=== PATIENT | female | born 1985 | race Caucasian/White ===

== ENCOUNTER 2018-10-13 07:15 | Emergency (ER) | payer SELFPAY ==
--- NOTE | 2018-10-13 07:38 | PDOC ---
History of Present Illness - General Chief Complaint: Abscess Boil Stated Complaint: BACK PAIN Time Seen by Provider: 10/13/18 07:37 History Source: Patient Exam Limitations: No Limitations - History of Present Illness Initial Comments: 10/13/18 08:20 CHIEF COMPLAINT: Abscess HISTORY OF PRESENT ILLNESS: This is an otherwise healthy 33-year-old female with recurrent pilonidal cyst. This is her fourth recurrence. She reports that she had an in office procedure with the surgeon 3 years ago, and was told that if she had recurrence that she would need management in the OR. She has had 4 days of pain/tenderness at the coccyx area. She reports normal bowel movements and no sensation of rectal pressure. She has not had fevers/chills. Vital signs on arrival are all within normal limits. REVIEW OF SYSTEMS: GENERAL/CONSTITUTIONAL: No fever or chills. No weakness. No weight change. GASTROINTESTINAL: No nausea, vomiting, diarrhea or constipation. GENITOURINARY: No dysuria, frequency, or change in urination. MUSCULOSKELETAL: No joint or muscle swelling or pain. No neck or back pain. SKIN: See HPI. NEUROLOGIC: No headache, vertigo, loss of consciousness, or loss of sensation. HEMATOLOGIC/LYMPHATIC: No anemia, easy bleeding, or history of blood clots. ALLERGIC/IMMUNOLOGIC: No hives or skin allergy. No latex allergy. PHYSICAL EXAM: GENERAL: The patient is awake, alert, and fully oriented, in no acute distress. HEAD: Normal with no signs of trauma. ENT: Pupils equal, round and reactive to light, extraocular movements intact, sclera anicteric, conjunctiva clear. Neck supple. LUNGS: Clear to auscultation bilaterally. Normal excursion. No respiratory distress or use of accessory muscles. CV: RRR, S1/S2, no MRG. Cap refill < 2 sec. ABDOMEN: Soft, non-distended, non-tender. EXTREMITIES: Normal range of motion, no edema. NEUROLOGICAL: Normal speech, normal gait. CN II-XII grossly intact. PSYCH: Normal mood, normal affect. SKIN: Area of tenderness and induration over coccyx, more pronounced on left side. No erythema or fluctuance at skin surface. RECTAL: Normal rectal exam with no masses or tenderness. Past History - Past Medical History Allergies/Adverse Reactions: Allergies Allergy/AdvReac Type Severity Reaction Status Date / Time No Known Allergies Allergy Verified 10/13/18 07:31 Home Medications: Ambulatory Orders Docusate Sodium [Colace] 100 mg PO TID #30 capsule 10/13/18 Ibuprofen [Motrin -] 600 mg PO QID PRN #30 tablet 10/13/18 Oxycodone HCl/Acetaminophen [Percocet 5-325 mg Tablet] 1 tab PO Q6H #10 tablet MDD 4 tabs 10/13/18 Asthma: No Cancer: No Cardiac Disorders: No Diabetes: No HTN: No Seizures: No Thyroid Disease: No - Reproductive History (#): 5 Para: 2 Cervical CA: No Dysfunctional Uterine Bleeding: No Ectopic : No Endometrial CA: No Polycystic Ovaries: No Therapeutic (s) & number: No Tubal Ligation: No Spontaneous : 2 - Suicide/Smoking/Psychosocial Hx Smoking Status: No Smoking History: Current every day smoker Have you smoked in the past 12 months: No Number of Cigarettes Smoked Daily: 7 Information on smoking cessation initiated: Yes Hx Alcohol Use: No Drug/Substance Use Hx: No Substance Use Type: None Hx Substance Use Treatment: No *Physical Exam - Vital Signs Last Vital Signs Temp Pulse Resp BP Pulse Ox 97.7 F 82 16 110/62 97 10/13/18 07:32 10/13/18 07:32 10/13/18 07:32 10/13/18 07:32 10/13/18 07:32 Moderate Sedation - Procedure Monitoring Vital Signs: Procedure Monitoring Vital Signs Temperature 97.7 F 10/13/18 07:32 Pulse Rate 82 10/13/18 07:32 Respiratory Rate 16 10/13/18 07:32 Blood Pressure 110/62 10/13/18 07:32 O2 Sat by Pulse Oximetry (%) 97 10/13/18 07:32 Medical Decision Making - Medical Decision Making 10/13/18 08:26 A/P: 33-year-old female with recurrent pilonidal cyst without systemic symptoms or rectal involvement. -Area prepped with Betadine and explored with 18-gauge needle; unable to extract any pus -Discussed with Dr. Miller who will see the patient in the office, will likely need operative procedure *DC/Admit/Observation/Transfer Diagnosis at time of Disposition: Pilonidal cyst - Discharge Dispostion Disposition: HOME Condition at time of disposition: Stable Decision to Admit order: No - Prescriptions Prescriptions: Docusate Sodium [Colace] 100 mg PO TID #30 capsule Ibuprofen [Motrin -] 600 mg PO QID PRN #30 tablet PRN Reason: Pain Oxycodone HCl/Acetaminophen [Percocet 5-325 mg Tablet] 1 tab PO Q6H #10 tablet MDD 4 tabs - Referrals Schedule a call back: Call with appt Referrals: Kwasi Miller MD [Staff Physician] - - Patient Instructions Printed Discharge Instructions: Pilonidal Cyst Additional Instructions: -Take ibuprofen as needed for pain and Percocet as needed for severe breakthrough pain -Take warm baths -Sit on cushions to relieve pressure -Follow up with Dr. Miller (surgeon), contact information enclosed -Return for fever, pain in the rectum/difficulty with bowel movements, or any other concerning symptoms Print Language: HUNGARIAN - Post Discharge Activity
[2018-10-13 07:45] VITALS: BP 110/62; PULSE 82; TEMP 97.7; BMI 23.7
[2018-10-13] MEDS ORDERED: LIDOCAINE HCL 1%, 10 MG/ML (50 mL VIAL) SQ ONE (07:52)
[2018-10-13] MEDS ORDERED: LIDOCAINE HCL 1%, 10 MG/ML (20ML VIAL) ONE (07:56)
== END 2018-10-13 08:45 | disposition home or self-care (01) ==
LOC: JER 07:15
PROC: 0H98XZZ Drainage of Buttock Skin, External Approach (ICD-10-PCS; principal; 2018-10-13)
DX: L05.91 Pilonidal cyst without abscess (principal)
CPT/HCPCS: 99282-25

== ENCOUNTER 2018-10-19 22:36 | Day surgery (SDC) | payer SELFPAY ==
--- NOTE | 2018-10-20 02:07 | PDOC ---
History of Present Illness - General Chief Complaint: Wound Stated Complaint: PCP ADMIT/ABSCESS BOIL Time Seen by Provider: 10/20/18 02:06 History Source: Patient Exam Limitations: No Limitations - History of Present Illness Initial Comments: 10/20/18 02:30 33 year old female with PMH pilonidal cyst sent to ED by Dr. Miller for admission for pilonidal cyst surgery. Pt stated she had prior surgery for pilonidal cyst x3 years ago, and has been symptom free until x16 days ago, when she began to have swelling and pain at the site. Pt stated the wound is draining. Pt was seen by Dr. Miller 10/19/18. Pt denied fever, chills, nausea, vomiting, abdominal pain, chest pain, shortness of breath, lightheadedness or any other complaints. Allergies: NKDA Past History - Past Medical History Allergies/Adverse Reactions: Allergies Allergy/AdvReac Type Severity Reaction Status Date / Time No Known Allergies Allergy Verified 10/20/18 03:28 Home Medications: Ambulatory Orders NK [No Known Home Medication] 10/20/18 Asthma: No Cancer: No Cardiac Disorders: No COPD: No Diabetes: No HTN: No Seizures: No Thyroid Disease: No - Surgical History Abdominal Surgery: No Appendectomy: No Cardiac Surgery: No Cholecystectomy: No Gastric Stapling: No Lung Surgery: No Neurologic Surgery: No - Reproductive History (#): 5 Para: 2 Cervical CA: No Dysfunctional Uterine Bleeding: No Ectopic : No Endometrial CA: No Polycystic Ovaries: No Therapeutic (s) & number: No Tubal Ligation: No Spontaneous : 2 - Suicide/Smoking/Psychosocial Hx Smoking Status: No Smoking History: Never smoked Have you smoked in the past 12 months: No Number of Cigarettes Smoked Daily: 7 Information on smoking cessation initiated: No Hx Alcohol Use: No Drug/Substance Use Hx: No Substance Use Type: None Hx Substance Use Treatment: No Review of Systems - Review of Systems Able to Perform ROS?: Yes Comments:: 10/20/18 02:33 General: denied fever, chills, night sweats, generalized weakness. HEENT: denied sore throat, rhinorrhea, ear pain. Heart: denied chest pain, palpitations, syncope, lower extremity swelling, diaphoresis. Respiratory: denied shortness of breath, cough, sputum production, hemoptysis. Abdomen: denied abdominal pain, nausea, vomiting, diarrhea, constipation, blood in stool. : denied dysuria, increased urinary frequency, hematuria, urinary incontinence , flank pain. Back: denied back pain. Musculoskeletal: denied joint pain, muscle pain, joint swelling. Neurological: denied headache, dizziness, numbness, tingling, weakness. Skin: admitted to pilonidal cyst. denied rash, laceration, abrasion. *Physical Exam - Vital Signs Last Vital Signs Temp Pulse Resp BP Pulse Ox 97.6 F 90 20 111/49 L 99 10/19/18 22:53 10/19/18 22:53 10/19/18 22:53 10/19/18 22:53 10/19/18 22:53 - Physical Exam Comments: 10/20/18 02:33 Constitutional: Well-nourished, Well-developed, appearing stated age. HEENT: head is normocephalic, atraumatic. EOMI. PERRLA. Neck: supple. Full ROM. Heart: regular rhythm. no murmurs, rubs or gallops. Lungs: clear to auscultation bilaterally. no crackles, rhonchi or wheezing. no stridor. Abdomen: soft, nontender. normal bowel sounds. no rebound, guarding, masses. Extremities: Peripheral pulses intact. No lower extremity edema. Neurological: CN 2-12 grossly intact. Moves all four extremities. Psych: awake, alert, oriented x3. Follows commands. Answers questions appropriately. Skin: 2x2 cm pilonidal cyst noted, no surrounding erythema, no fluctuance, draining. Moderate Sedation - Procedure Monitoring Vital Signs: Procedure Monitoring Vital Signs Temperature 97.6 F 10/19/18 22:53 Pulse Rate 90 10/19/18 22:53 Respiratory Rate 20 10/19/18 22:53 Blood Pressure 111/49 L 10/19/18 22:53 O2 Sat by Pulse Oximetry (%) 99 10/19/18 22:53 ED Treatment Course - LABORATORY CBC & Chemistry Diagram: 10/20/18 02:26 10/20/18 02:26 Medical Decision Making - Medical Decision Making 10/20/18 02:34 33 year old female with above PMH sent to ED by Dr. Miller for admission for pilonidal cyst surgery. Initial Vital Signs Temp Pulse Resp BP Pulse Ox 97.6 F 90 20 111/49 L 99 10/19/18 22:53 10/19/18 22:53 10/19/18 22:53 10/19/18 22:53 10/19/18 22:53 Afebrile. No tachycardia. No tachypnea. Mild hypotension. No hypoxia on room air. Labs ordered: CBC, CMP, coags, T/S Imaging ordered: CXR Medications ordered: normal saline bolus EKG performed at 0255: rate 70, regular rhythm, normal axis, normal intervals, no acute ST changes. CXR my read: sharp costophrenic angles. no cardiomegaly. no infiltrate. no pneumothorax. - Pending official read 10/20/18 03:02 CBC WBC 12.0 K/mm3 (4.0-10.0) H 10/20/18 02:26 RBC 4.09 M/mm3 (3.60-5.2) 10/20/18 02:26 Hgb 12.9 GM/dL (10.7-15.3) 10/20/18 02:26 Hct 36.9 % (32.4-45.2) 10/20/18 02:26 MCV 90.2 fl (80-96) 10/20/18 02:26 MCH 31.5 pg (25.7-33.7) 10/20/18 02:26 MCHC 34.9 g/dl (32.0-36.0) 10/20/18 02:26 RDW 13.9 % (11.6-15.6) D 10/20/18 02:26 Plt Count 328 K/MM3 (134-434) D 10/20/18 02:26 MPV 7.9 fl (7.5-11.1) D 10/20/18 02:26 Absolute Neuts (auto) 7.3 K/mm3 (1.5-8.0) 10/20/18 02:26 Neutrophils % 60.8 % (42.8-82.8) 10/20/18 02:26 Lymphocytes % 29.1 % (8-40) 10/20/18 02:26 Monocytes % 7.1 % (3.8-10.2) 10/20/18 02:26 Eosinophils % 2.4 % (0-4.5) D 10/20/18 02:26 Basophils % 0.6 % (0-2.0) 10/20/18 02:26 Nucleated RBC % 0 % (0-0) 10/20/18 02:26 Leukocytosis without left shift. 10/20/18 03:25 CMP Sodium 138 mmol/L (136-145) 10/20/18 02:26 Potassium 4.4 mmol/L (3.5-5.1) 10/20/18 02:26 Chloride 109 mmol/L (98-107) H 10/20/18 02:26 Carbon Dioxide 22 mmol/L (21-32) 10/20/18 02:26 Anion Gap 7 MMOL/L (8-16) L 10/20/18 02:26 BUN 11 mg/dL (7-18) 10/20/18 02:26 Creatinine 0.8 mg/dL (0.55-1.3) 10/20/18 02:26 Creat Clearance w eGFR > 60 (>60) 10/20/18 02:26 Random Glucose 89 mg/dL (74-106) 10/20/18 02:26 Calcium 8.7 mg/dL (8.5-10.1) 10/20/18 02:26 Total Bilirubin 0.4 mg/dL (0.2-1) 10/20/18 02:26 AST 12 U/L (15-37) L 10/20/18 02:26 ALT 20 U/L (13-61) 10/20/18 02:26 Alkaline Phosphatase 84 U/L (45-117) 10/20/18 02:26 Total Protein 6.9 g/dl (6.4-8.2) 10/20/18 02:26 Albumin 3.4 g/dl (3.4-5.0) 10/20/18 02:26 Beta HCG, Quant < 1.0 mIU/ml 10/20/18 02:26 INR, PTT INR 1.08 (0.83-1.09) 10/20/18 02:26 Normal CMP. Normal coags. Pt to be admitted to Dr. Miller's service. 10/20/18 20:35 CXR report: negative for acute pathology *DC/Admit/Observation/Transfer Diagnosis at time of Disposition: Pilonidal cyst - Discharge Dispostion Condition at time of disposition: Stable Decision to Admit order: Yes - Referrals - Patient Instructions - Post Discharge Activity
[2018-10-20] MEDS ORDERED: SODIUM CHLORIDE 1,000 ML IV STA (02:35)
[2018-10-20 02:39] LABS: BASO % 0.6 % (0-2.0); EOS % 2.4 % (0-4.5); HEMATOCRIT 36.9 % (32.4-45.2); HEMOGLOBIN 12.9 GM/dL (10.7-15.3); LYMPH % 29.1 % (8-40); MCH 31.5 pg (25.7-33.7); MCHC 34.9 g/dl (32.0-36.0); MEAN CELL VOLUME 90.2 fl (80-96); MEAN PLT VOLUME 7.9 fl (7.5-11.1); MONO % 7.1 % (3.8-10.2); NEUT % 60.8 % (42.8-82.8); PLATELET COUNT 328 K/MM3 (134-434); RBC 4.09 M/mm3 (3.60-5.2); RDW 13.9 % (11.6-15.6)
[2018-10-20 03:08] LABS: ALBUMIN 3.4 g/dl (3.4-5.0); ALK PHOS 84 U/L (45-117); ANION GAP 7 MMOL/L (8-16); BILIRUBIN,TOTAL 0.4 mg/dL (0.2-1); BLOOD UREA NITROGEN 11 mg/dL (7-18); CALCIUM 8.7 mg/dL (8.5-10.1); CHLORIDE 109 mmol/L (98-107); CO2 22 mmol/L (21-32); CREATININE 0.8 mg/dL (0.55-1.3); GLUCOSE,RANDOM 89 mg/dL (74-106); POTASSIUM 4.4 mmol/L (3.5-5.1); SGOT/AST 12 U/L (15-37); SGPT/ALT 20 U/L (13-61); SODIUM 138 mmol/L (136-145); TOT PROT 6.9 g/dl (6.4-8.2)
[2018-10-20 03:15] LABS: INR 1.08 (0.83-1.09); PROTHROMBIN TIME (PATIENT) 12.7 SEC (9.7-13.0)
[2018-10-20 03:18] LABS: ACTIVATED PTT 29.7 SECONDS (25.2-36.5)
--- NOTE | 2018-10-20 05:19 | PDOC ---
Attending Attestation - Resident Resident Name: Sommer Charles - ED Attending Attestation I have performed the following: I have examined & evaluated the patient, The case was reviewed & discussed with the resident, I agree w/resident's findings & plan, Exceptions are as noted - HPI HPI: 10/20/18 05:16 33yoF w/ chronic pilonidal abscess/cysts sent by surgery for direct admission for intervention on infected cyst. - Physicial Exam PE: 10/20/18 05:17 NAD, well appearing pilonidal cyst exam as per resident note. - Medical Decision Making 10/20/18 05:17 33yoF for OR. - preop - CXR - EKG - admit
--- NOTE | 2018-10-20 08:12 | HP ---
Admitting History and Physical - Admission Chief Complaint: Infected pilonidal cyst History of Present Illness: 33yo F presented to the ED with complaint of pain and swelling around gluteal cleft for the past 7-10 days. Pt states that yesterday the pain became worse and started draining so she presented to the ED. Pt states that she previously had area I&D about 3 years ago, but never followed up with a surgeon to have cyst removed. Pt denies fever, chills, n/v. History Source: Patient Limitations to Obtaining History: No Limitations - Past Medical History Pulmonary: Yes: Asthma (rx albutrol inhaler prn, does not recall when was last episode) ...LMP: 06/29/12 Additional Past Medical History: denies - Past Surgical History Past Surgical History: Yes: - Smoking History Smoking history: Current every day smoker (smokes 1/4ppd x 3years) Have you smoked in the past 12 months: Yes Aproximately how many cigarettes per day: 7 - Alcohol/Substance Use Hx Alcohol Use: No History of Substance Use: reports: None - Social History Usual Living Arrangement: Yes: With Spouse Home Medications - Allergies Allergies/Adverse Reactions: Allergies Allergy/AdvReac Type Severity Reaction Status Date / Time No Known Allergies Allergy Verified 10/20/18 03:28 - Home Medications Home Medications: Ambulatory Orders Docusate Sodium [Colace] 100 mg PO TID #30 capsule 10/13/18 Ibuprofen [Motrin -] 600 mg PO QID PRN #30 tablet 10/13/18 Oxycodone HCl/Acetaminophen [Percocet 5-325 mg Tablet] 1 tab PO Q6H #10 tablet MDD 4 tabs 10/13/18 Review of Systems Findings/Remarks: see HPI - Review of Systems Constitutional: reports: No Symptoms Eyes: reports: No Symptoms HENT: reports: No Symptoms Neck: reports: No Symptoms Cardiovascular: reports: No Symptoms Respiratory: reports: No Symptoms Gastrointestinal: reports: No Symptoms Genitourinary: reports: No Symptoms Physical Examination Vital Signs: Vital Signs Temperature 97.6 F 10/19/18 22:53 Pulse Rate 90 10/19/18 22:53 Respiratory Rate 20 10/19/18 22:53 Blood Pressure 111/49 L 10/19/18 22:53 O2 Sat by Pulse Oximetry (%) 99 10/19/18 22:53 Constitutional: Yes: Well Nourished, No Distress, Calm Eyes: Yes: WNL, Conjunctiva Clear, EOM Intact HENT: Yes: WNL, Atraumatic, Normocephalic Neck: Yes: WNL, Supple, Trachea Midline Cardiovascular: Yes: WNL, Regular Rate and Rhythm Respiratory: Yes: WNL, Regular, CTA Bilaterally Gastrointestinal: Yes: WNL, Soft Musculoskeletal: Yes: WNL Extremities: Yes: WNL Edema: No Integumentary: Yes: Other (Superior aspect of gluteal cleft shows mild erythema and swelling, with tenderness to palpation, pinhole openning with serous drainage.) Neurological: Yes: WNL ...Motor Strength: WNL Psychiatric: Yes: WNL, Alert, Oriented Labs: CBC, BMP 10/20/18 02:26 10/20/18 02:26 Imaging - Results Chest X-ray: Pending Problem List - Problems (1) Infected pilonidal cyst Assessment/Plan: Plan -pt will be taken to the OR for drainage and possible excision of pilonidal cyst this afternoon -keep NPO -IV fluids Code(s): L05.91 - PILONIDAL CYST WITHOUT ABSCESS
[2018-10-20] MEDS ORDERED: ROCURONIUM BROMIDE 50 MG/5 ML VIAL ONE (11:27)
[2018-10-20] MEDS ORDERED: MIDAZOLAM HCL 2 MG/2 ML SINGLE DOSE VIAL ONE (11:27)
[2018-10-20] MEDS ORDERED: ONDANSETRON 4 MG/2 ML VIAL IVPUSH PRN ×2 (12:08→13:35)
[2018-10-20] MEDS ORDERED: ceFAZolin SODIUM 1 GM VIAL ONE (12:10)
[2018-10-20] MEDS ORDERED: ceFAZolin SODIUM 1 GM VIAL IVPB ONE (12:12)
[2018-10-20] MEDS ORDERED: LACTATED RINGERS SOLUTION 1,000 ML IV SCH ×2 (12:15→13:35)
[2018-10-20] MEDS ORDERED: PROPOFOL 20 ML ONE (12:16)
[2018-10-20] MEDS ORDERED: KETOROLAC TROMETHAMINE 30 MG/1 ML VIAL ONE (12:18)
--- NOTE | 2018-10-20 13:27 | SURG ---
Surgery Lead Neurodiagnostic Technologist Note Lead Neurodiagnostic Technologist: Jose Luis Craig PA-C Date of Service: 10/20/18 Diagnosis: infected pilonidal cyst Procedure: Excision and drainage of pilonidal cyst I was present for the entirety of the operative procedure. For further detail, please refer to operative report. Visit type - Case Type Case Type: ED Admission - Emergency Emergency Visit: Yes Care time: The patient presented to the Emergency Department on the above date and was hospitalized for further evaluation of their emergent condition. - New patient This patient is new to me today: Yes Date on this admission: 10/20/18
--- NOTE | 2018-10-20 13:27 | OP ---
Operative Note - Note: Operative Date: 10/20/18 Pre-Operative Diagnosis: infected pilonidal cyst Operation: Excision and drainage of pilonidal cyst Post-Operative Diagnosis: Same as Pre-op Surgeon: Kwasi Miller Security Patrol Driver: Jose Luis Craig Anesthesiologist/OVERLAY PLASTICIAN: Ulises Nevarez Anesthesia: General Estimated Blood Loss (mls): 5 Operative Report Dictated: Yes
--- NOTE | 2018-10-20 13:35 | PN ---
Progress Note (short form) - Note Progress Note: Attending Surgeon Patient was seen in the office yesterday w/pain and swelling at the site of a recurrent/persistant pilonidal cyst and sinus tract; she was instructed to go the ER for admission for I and D and possible excision of the pilonidal cyst tract and abscess; r/b/t/a's d/w the patient pre-op and informed consent obtained; possible further surgery in the future may be indicated; she understands. Kwasi Miller MD FACS
--- NOTE | 2018-10-20 16:16 | EKG ---
Test Reason : Blood Pressure : / mmHG Vent. Rate : 070 BPM Atrial Rate : 070 BPM P-R Int : 124 ms QRS Dur : 076 ms QT Int : 378 ms P-R-T Axes : 052 054 032 degrees QTc Int : 408 ms NORMAL SINUS RHYTHM WITH SINUS ARRHYTHMIA NORMAL ECG WHEN COMPARED WITH ECG OF 08-MAY-2010 14:24, NO SIGNIFICANT CHANGE WAS FOUND Confirmed by NIKOLAY BETTS MD ([id number]) on 10/20/2018 4:16:31 PM Referred By: Confirmed By:NIKOLAY BETTS MD
[2018-10-20 16:17] VITALS: BMI 27.9
[2018-10-20] MEDS: oxyCODONE HCL 5 MG TABLET PO PRN (21:26)
[2018-10-21] MEDS: oxyCODONE HCL 5 MG TABLET PO PRN ×2 (06:37→10:10)
[2018-10-21 11:55] VITALS: BP 100/60; PULSE 72; TEMP 98.4
--- NOTE | 2018-10-21 16:10 | PATH ---
Surgical Pathology Report Patient Name: GURINDER MACHUCA [facility]. Rec. #: [id number] /Age/Gender: 1985 (Age: 33) / F Account: [id number] Location: AMBULATORY SURG Taken: 10/20/2018 Received: 10/20/2018 Reported: 10/21/2018 Physicians: Kwasi Miller MD PHYSICIAN EMERGENCY DEPT Specimen(s) Received PILONIDAL CYST AND SINUS TRACT Clinical History Pilonidal cyst Final Diagnosis PILONIDAL CYST AND SINUS TRACT, EXCISION: SKIN WITH SINUS TRACT SHOWING SEVERE ACUTE AND CHRONIC INFLAMMATION AND ABSCESS FORMATION. Electronically Signed Anibal Castro M.D. Gross Description Received in formalin labeled "pilonidal cyst and sinus tract," is a 2.8 x 0.7 cm wolff, unoriented portion of skin excised to a depth of 0.8 cm. The epidermal surface displays a central, linear invagination. Separately received within the same container is a 2.3 x 1.8 x 0.5 cm aggregate of wolff-brown soft tissue fragments, possibly consistent with a disrupted cyst. Marine Engine Machinist Apprentice sections are submitted in one cassette. DL/10/20/2018 saudi10/20/2018
--- NOTE | 2018-10-31 22:47 | OP ---
DATE OF OPERATION: 10/20/2018 PREOPERATIVE DIAGNOSIS: Infected pilonidal cyst and sinus tract. POSTOPERATIVE DIAGNOSIS: Infected pilonidal cyst and sinus tract. PROCEDURE: Incision and drainage of pilonidal cyst and sinus tract and excision of pilonidal cyst and sinus tract. SURGEON: Kwasi Miller MD SENIOR ACTUARIAL ANALYST: Jose Luis Craig PA-C ANESTHESIA: General. OPERATIVE FINDINGS: There was an infected pilonidal cyst and sinus tract with surrounding induration and cellulitis. The rest of the findings were unremarkable. DESCRIPTION OF PROCEDURE: The patient was placed on the operating room table in the prone jackknife position. After the induction of general anesthesia, fluctuant area in the midline was incised, and purulent drainage was sent for culture and sensitivity. An elliptical incision was then mapped out around the sinus tract pit in the midline, and using a scalpel, excision was carried out from skin down through subcutaneous tissue and fat to the sacral fascia. This specimen was passed off the operative field and sent for pathological examination. Additional curetting was carried out until brisk bleeding was observed and all nonviable infected tissue was removed. The wound was then copiously irrigated with sterile saline and hemostasis secured with electrocautery. Hemostasis was again verified, and then, the wound was packed with 1/2-inch Iodoform gauze, followed by dry sterile dressings and the patient extubated in the operating room and transferred to the postanesthesia care unit in stable condition, awake and alert. ESTIMATED BLOOD LOSS: Minimal. DRAINS: None. SPECIMENS: Pilonidal cyst and sinus tract portions to Pathology. I, Kwasi Miller, was physically present in the operating room from the time the patient was placed on the operating table until she was transferred to the postanesthesia care unit in my accompaniment. MD ITALIA French/[id number]
== END 2018-10-21 12:10 | disposition home or self-care (01) ==
LOC: JER 22:36 → JERBED 10-20 03:11 → JASUSAT 10-20 03:11 → UNDOADMIN 10-20 03:11 → J8W 10-20 15:48 → JASUSAT 10-21 12:10
PROVIDERS: ATTEND Surgery
CPT/HCPCS: 36415; 71046-TC-FY; 80053; 84702; 85025; 85610; 85730; 86850; 86900; 86901; 87040; 87070; 87075; 87076; 87205; 88304-TC; 93005; 93010; 94760; 99283-25; J7030

== ENCOUNTER 2018-11-03 19:49 | Emergency (ER) | payer OTHER ==
--- NOTE | 2018-11-03 19:51 | PDOC ---
Rapid Medical Evaluation Time Seen by Provider: 11/03/18 19:50 Medical Evaluation: Allergies Allergy/AdvReac Type Severity Reaction Status Date / Time No Known Allergies Allergy Verified 10/20/18 03:28 11/03/18 19:50 I have performed a brief in-person evaluation of this patient. The patient presents with a chief complaint of: subjective fever, bodyaches, headaches, sore throat x 1 day. s/p surgery for pilonidal cyst x 2 wks ago. Pertinent physical exam findings: Lungs CTAB. Mild tachycardia. Mild pharyngeal erythema. Surgical site clean and dry, no erythema. I have ordered the following: Influenza, rapid strep. The patient will proceed to the ED for further evaluation. 11/03/18 19:53 Discharge Disposition - Diagnosis Fever Qualifiers: Encounter type: initial encounter - Referrals - Patient Instructions - Post Discharge Activity
[2018-11-03 19:55] VITALS: BP 111/75; PULSE 101; TEMP 98.9; BMI 23.3
--- NOTE | 2018-11-03 20:10 | PDOC ---
History of Present Illness - General Chief Complaint: Cold Symptoms Stated Complaint: COLD SYMPTOMS Time Seen by Provider: 11/03/18 19:50 History Source: Patient Exam Limitations: No Limitations - History of Present Illness Initial Comments: 11/03/18 20:12 Patient is a 33-year-old female who presents to the ER for one day of subjective fevers, sore throat, body aches, R ear pain and headache. Pt states she's taken Tylenol with little relief of her symptoms. Denies cough, shortness of breath, chest pain, vomiting and diarrhea Past History - Travel Traveled outside of the country in the last 30 days: No Close contact w/someone who was outside of country & ill: No - Past Medical History Allergies/Adverse Reactions: Allergies Allergy/AdvReac Type Severity Reaction Status Date / Time No Known Allergies Allergy Verified 11/03/18 19:55 Home Medications: Ambulatory Orders Acetaminophen [Tylenol -] 1,000 mg PO Q6H 11/03/18 Asthma: No Cancer: No Cardiac Disorders: No COPD: No Diabetes: No HTN: No Seizures: No Thyroid Disease: No - Surgical History Abdominal Surgery: No Appendectomy: No Cardiac Surgery: No Cholecystectomy: No Gastric Stapling: No Lung Surgery: No Neurologic Surgery: No - Reproductive History (#): 5 Para: 2 Cervical CA: No Dysfunctional Uterine Bleeding: No Ectopic : No Endometrial CA: No Polycystic Ovaries: No Therapeutic (s) & number: No Tubal Ligation: No Spontaneous : 2 - Suicide/Smoking/Psychosocial Hx Smoking Status: No Smoking History: Never smoked Have you smoked in the past 12 months: No Number of Cigarettes Smoked Daily: 7 Information on smoking cessation initiated: No 'Breaking Loose' booklet given: 10/20/18 Hx Alcohol Use: No Drug/Substance Use Hx: No Substance Use Type: None Hx Substance Use Treatment: No Review of Systems - Review of Systems Able to Perform ROS?: Yes Comments:: 11/03/18 20:10 CONSTITUTIONAL: Present: Fever, chills, body aches Absent: diaphoresis, generalized weakness, malaise, loss of appetite HEENT: Present: rhinorrhea, nasal congestion, throat pain, R ear pain. Absent: difficulty swallowing, mouth swelling, eye pain, visual Changes CARDIOVASCULAR: Absent: chest pain, loss of consciousness, palpitations, irregular heart rate, peripheral edema RESPIRATORY: Present: Cough Absent: shortness of breath, dyspnea with exertion, orthopnea, wheezing, stridor, hemoptysis GASTROINTESTINAL: Absent: abdominal pain, abdominal distension, nausea, vomiting, diarrhea, constipation, melena, hematochezia SKIN: Absent: rash, itching, pallor NEUROLOGIC: Present: headache Absent: focal weakness or paresthesias, dizziness, unsteady gait, seizure, mental status changes, bladder or bowel incontinence Is the patient limited Maltese proficient: No *Physical Exam - Vital Signs Last Vital Signs Temp Pulse Resp BP Pulse Ox 98.9 F 101 H 19 111/75 98 11/03/18 19:52 11/03/18 19:52 11/03/18 19:52 11/03/18 19:52 11/03/18 19:52 - Physical Exam Comments: 11/03/18 20:12 GENERAL: Well developed, well nourished. Awake and alert. No acute distress. HEENT: Normocephalic, atraumatic. PERRLA, EOMI. No conjunctival pallor. Sclera are non- icteric. Moist mucous membranes. Oropharynx is clear. NECK: Supple. Full ROM. No JVD. Carotid pulses 2+ and symmetric, without bruits. No thyromegaly. No lymphadenopathy. CARDIOVASCULAR: Regular rate and rhythm. No murmurs, rubs, or gallops. Distal pulses are 2+ and symmetric. PULMONARY: No evidence of respiratory distress. Lungs clear to auscultation bilaterally. No wheezing, rales or rhonchi. ABDOMINAL: Soft. Non-tender. Non-distended. No rebound or guarding. No organomegaly. Normoactive bowel sounds. MUSCULOSKELETAL Normal range of motion at all joints. No bony deformities or tenderness. No CVA tenderness. EXTREMITIES: No cyanosis. No clubbing. No edema. No calf tenderness. SKIN: Warm and dry. Normal capillary refill. No rashes. No jaundice. NEUROLOGICAL: Alert, awake, appropriate. Cranial nerves 2-12 intact. No deficits to light touch and temperature in face, upper extremities and lower extremities. No motor deficits in the in face, upper extremities and lower extremities. Normoreflexic in the upper and lower extremities. Normal speech. Toes are down- going bilaterally. Gait is normal without ataxia. PSYCHIATRIC: Cooperative. Good eye contact. Appropriate mood and affect. Moderate Sedation - Procedure Monitoring Vital Signs: Procedure Monitoring Vital Signs Temperature 98.9 F 11/03/18 19:52 Pulse Rate 101 H 11/03/18 19:52 Respiratory Rate 19 11/03/18 19:52 Blood Pressure 111/75 11/03/18 19:52 O2 Sat by Pulse Oximetry (%) 98 11/03/18 19:52 Medical Decision Making - Medical Decision Making 11/03/18 21:42 Patient is a 33-year-old female no medical history presents to ER with 1 day of cold/flulike symptoms. Exam is benign at this time with no focal findings. Rapid strep and rapid flu are negative. Will treat symptomatically with Motrin and Zofran. Most likely a viral URI Discharge home with PCP follow-up. I discussed the physical exam findings, ancillary test results and final diagnoses with the patient. I answered all of the patient's questions. The patient was satisfied with the care received and felt comfortable with the discharge plan and treatment plan. The Patient agrees to follow up with the primary care physician/specialist within 24-72 hours. Return precautions were given. *DC/Admit/Observation/Transfer Diagnosis at time of Disposition: Upper respiratory infection Qualifiers: URI type: unspecified URI Qualified Code(s): J06.9 - Acute upper respiratory infection, unspecified - Discharge Dispostion Disposition: HOME Condition at time of disposition: Stable Decision to Admit order: No - Referrals Referrals: Lauri Price MD [Staff Physician] - - Patient Instructions Printed Discharge Instructions: DI for Viral Upper Respiratory Infection -- Adult Additional Instructions: You have an upper respiratory infection, or the common cold. Your strep and flu testing was negative today. Please take Motrin 600 mg every 6 hours as needed for pain not to exceed 3000 mg a day. You may take Zofran 4mg every 8 hours as needed for nausea. Drink plenty of fluids. Cough drops and warm tea may help your symptoms as well. Please follow up with her primary care doctor this week. Return to the emergency department if you have difficulty breathing, shortness of breath, worsening pain, nausea, vomiting or if you have any changes in your symptoms. Usted tiene philippe infeccin respiratoria superior, o el resfriado comn. Hernandez prueba de estreptococo y gripe fue negativa hoy [place] Motrin 600 mg cada 6 horas segn sea necesario para que el dolor no exceda los 3000 mg al da. Puede stephania Zofran 4 mg cada 8 horas segn sea necesario para las nuseas. Beber mucho lquido. Las gotas para la tos y el t caliente tambin pueden ayudar con lalit sntomas. Por favor rena un seguimiento con hernandez mdico de atencin primaria esta semana. Regrese al departamento de emergencias si tiene dificultad para respirar, dificultad para respirar, empeoramiento del dolor, nuseas, vmitos o si tiene algn cambio en lalit sntomas. - Post Discharge Activity Forms/Work/School Notes: Back to Work
[2018-11-03] MEDS ORDERED: IBUPROFEN 600 MG TABLET (FP) PO ONE ×2 (21:26→21:29)
[2018-11-03] MEDS ORDERED: ONDANSETRON *ODT* 4 MG TABLET SL ONE (21:26)
[2018-11-03] MEDS ORDERED: ONDANSETRON *ODT* 4 MG TABLET ONE (21:29)
== END 2018-11-03 21:32 | disposition home or self-care (01) ==
LOC: JERFT 19:49 → JER 19:49 → JERFT 21:32
DX: J06.9 Acute upper respiratory infection, unspecified (principal)
CPT/HCPCS: 87070; 87804; 87880; 99281-25; Q0162

== ENCOUNTER 2018-12-18 20:01 | Emergency (ER) | payer OTHER ==
[2018-12-18 20:16] VITALS: BP 115/60; PULSE 83; TEMP 97.9; BMI 24.1
--- NOTE | 2018-12-18 20:50 | PDOC ---
History of Present Illness - General Chief Complaint: Pain, Acute Stated Complaint: RIFGT SIDE PAIN Time Seen by Provider: 12/18/18 20:44 History Source: Patient, Spouse (Pt's present at bedside), Old Records Exam Limitations: No Limitations - History of Present Illness Initial Comments: HPI: 33 y/o female presenting to [facility] ER complaining of right lower back pain x2 days. Pt starts the pain started Wednesday morning after waking from sleep. Reports sleeping in a different position because her son slept in the bed with her. Pain is non-radiating and non-migratory. Made worse by lateral twisting of torso and deep inspiration. Denies fevers, chills, increased urinary frequency, dysuria, hematuria, or vaginal discharge. Has tried Tylenol for pain yesterday with minimal relief. States she, doesnt like taking medication. LMP: Does not have periods. New Depo shot placed in Oct 2018. No history of STDs. PCP: None Social Hx: - Tobacco: Smokes 6-7 cigarettes per day EtOH: Denies Street Drugs: Denies Past History - Past Medical History Allergies/Adverse Reactions: Allergies Allergy/AdvReac Type Severity Reaction Status Date / Time No Known Allergies Allergy Verified 12/18/18 20:11 Home Medications: Ambulatory Orders Acetaminophen [Tylenol -] 1,000 mg PO Q6H 11/03/18 Ibuprofen [Motrin -] 400 mg PO QID PRN #28 tablet 11/04/18 Ondansetron [Zofran *Odt*] 4 mg SL PRN PRN #14 od.tablet 11/04/18 Asthma: No Cancer: No Cardiac Disorders: No COPD: No Diabetes: No HTN: No Seizures: No Thyroid Disease: No - Surgical History Abdominal Surgery: No Appendectomy: No Cardiac Surgery: No Cholecystectomy: No Gastric Stapling: No Lung Surgery: No Neurologic Surgery: No - Reproductive History (#): 5 Para: 2 Cervical CA: No Dysfunctional Uterine Bleeding: No Ectopic : No Endometrial CA: No Polycystic Ovaries: No Therapeutic (s) & number: No Tubal Ligation: No Spontaneous : 2 - Suicide/Smoking/Psychosocial Hx Smoking Status: No Smoking History: Never smoked Have you smoked in the past 12 months: No Number of Cigarettes Smoked Daily: 7 'Breaking Loose' booklet given: 10/20/18 Hx Alcohol Use: No Drug/Substance Use Hx: No Substance Use Type: None Hx Substance Use Treatment: No Review of Systems - Review of Systems Able to Perform ROS?: Yes Comments:: In addition to that documented in the HPI above, the additional ROS was obtained : Constitutional: Denies fevers or chills Head: Denies headache, lightheadedness, or dizziness ENMT: Denies sore throat CV: Denies chest pain Resp: Denies SOB GI: Denies vomiting or diarrhea : Per HPI MSK: Denies recent trauma Skin: Denies new rashes Neuro: Denies new numbness or tingling or weakness Endocrine: Denies polyuria Heme: Denies bleeding or bruising *Physical Exam - Vital Signs Last Vital Signs Temp Pulse Resp BP Pulse Ox 97.9 F 83 18 115/60 98 12/18/18 20:09 12/18/18 20:09 12/18/18 20:09 12/18/18 20:09 12/18/18 20:09 - Physical Exam Comments: Constitutional: Well-developed, well-nourished, non-toxic female in no acute distress or obvious discomfort. Found sitting upright on edge of hospital bed. Alert and oriented x4. Answered all questions appropriately and completely. Speech was non-labored, non-pressured. Head: Normocephalic. No obvious external signs of trauma. Eyes: Sclerae white. Ears: Hearing grossly intact. Nose: No nasal discharge. Neck: Supple, trachea is midline. Cardiovascular / Chest: Regular rate and regular rhythm. No murmur, rubs, clicks, or gallops. Peripheral pulses: radial pulses full. Respiratory: Breathing unlabored. Equal chest rise and fall. Clear to auscultation bilaterally. No stridor, no wheezing, no rhonchi. Gastrointestinal: abdomen is soft, non-tender, non-distended. No hepatosplenemegaly. No pulsatile masses. No overlying skin lesions or obvious signs of trauma. No R or L flank tenderness. No suprabupic tenderness. Neuro: Alert and oriented. Moving all four extremities spontaneously. Skin: Warm, dry, and intact. No bruising, rashes, or other lesions. MSK: Diffuse tenderness to middle of right back, worse with palpation and lateral rotation. No signs of trauma. : No R or L CVA tenderness. Psych: Affect: appropriate. Mood: normal. Moderate Sedation - Procedure Monitoring Vital Signs: Procedure Monitoring Vital Signs Temperature 97.9 F 12/18/18 20:09 Pulse Rate 83 12/18/18 20:09 Respiratory Rate 18 12/18/18 20:09 Blood Pressure 115/60 12/18/18 20:09 O2 Sat by Pulse Oximetry (%) 98 12/18/18 20:09 Medical Decision Making - Medical Decision Making *Reviewed vital signs, nursing notes, and prior visit documentation (if available). 33 y/o female presenting with right sided back pain x2 days. No systemic symptoms. No urinary symptoms. Afebrile. Vitals unremarkable for hypotension or tachycardia. Suspect msk pain after sleeping position. Low suspicion for pyelonephritis, nephrolithiasis, , cystitis, ovarian torsion, or AAA. Will obtain UPreg, UA, and urine culture to evaluate further. Ordered IM toradol and Robaxin for symptom relief. UA unremarkable for pyuria, leukocyte esterase, or nitrites. Low suspicion for UTI. Culture pending. UPreg negative. Low suspicion for . Pt reassessed and states she is feeling much better. Continue to suspect MSK pain. Discussed laboratory results with pt. Answered all questions. Provided return precautions. Pt expressed verbal understanding and agreement with plan to discharge home with outpatient follow up. Will refer pt to resident clinic to establish primary care. *DC/Admit/Observation/Transfer Diagnosis at time of Disposition: Right-sided back pain Qualifiers: Back pain location: low back pain Chronicity: acute Sciatica presence: without sciatica Qualified Code(s): M54.5 - Low back pain - Discharge Dispostion Disposition: HOME Condition at time of disposition: Good Decision to Admit order: No - Referrals Referrals: [facility] [place] [Provider Group] - Patient Instructions Printed Discharge Instructions: DI for Low Back Pain Additional Instructions: You were seen today for lower back pain. Your urine did not show signs of infection. The urine culture will take two days to result. The hospital will call you if the test is positive. Your pain is likely muscular pain. You can take over the counter Tylenol or Advil as needed for pain. Take as directed on the package insert. Do not exceed the recommended dosage. I have entered a referral for you to see a primary care physician at [facility] [place] [facility]. You will need to call to make an appointment in the next week or as needed. The telephone number is [phone]. The address is: [facility] [place] [address] Go to the nearest emergency department if your condition worsens or you feel like you need additional emergency evaluation. Print Language: ARMENIAN - Post Discharge Activity
--- NOTE | 2018-12-18 20:53 | PDOC ---
Attending Attestation - HPI HPI: 12/18/18 21:16 The patient is a 33 year old female, no significant PMH, who presents to the emergency department for evaluation of 2 days worsening back pain that began when she woke up from sleeping in an akward position. The patient states she tried tylenol but does not like taking medicine. Patient denies . The patient denies chest pain, shortness of breath, headache and dizziness. Denies fever, chills, nausea, vomit, diarrhea and constipation. Denies dysuria, frequency, urgency and hematuria. Allergies: NKA Social history: None reported - Physicial Exam PE: 12/18/18 21:27 GENERAL: Awake, alert, and fully oriented, in no acute distress HEAD: No signs of trauma EYES: PERRLA, EOMI, sclera anicteric, conjunctiva clear ENT: Auricles normal inspection, hearing grossly normal, nares patent, oropharynx clear without exudates. Moist mucosa NECK: Normal ROM, supple, no lymphadenopathy, JVD, or masses LUNGS: Breath sounds equal, clear to auscultation bilaterally. No wheezes, and no crackles HEART: Regular rate and rhythm, normal S1 and S2, no murmurs, rubs or gallops ABDOMEN: Soft, nontender, normoactive bowel sounds. No guarding, no rebound. No masses BACK: (+)point tenderness around right T10-12 area, no radiation. No midline tenderness. EXTREMITIES: Normal range of motion, no edema. No clubbing or cyanosis. No cords, erythema, or tenderness NEUROLOGICAL: Cranial nerves II through XII grossly intact. Normal speech. SKIN: Warm, Dry, normal turgor, no rashes or lesions noted. <Michelle Snell - Last Filed: 12/18/18 21:27> - Resident Resident Name: Ronn Alan - ED Attending Attestation I have performed the following: I have examined & evaluated the patient, The case was reviewed & discussed with the resident, I agree w/resident's findings & plan - Medical Decision Making 12/18/18 22:31 Pt has normal UA; she is relieved to know it's not a kidney stone. She has point tenderness and back muscle spasm. She is feeling better with meds. Ready to go home. <Ana Higuera - Last Filed: 12/18/18 22:33> Attestations - Attestations 12/18/18 21:17 Documentation prepared by Michelle Snell, acting as senior medical director for Ana Higuera MD. <Michelle Snell - Last Filed: 12/18/18 21:27>
[2018-12-18] MEDS ORDERED: KETOROLAC TROMETHAMINE 30 MG/1 ML VIAL IM ONE (20:59)
[2018-12-18 21:25] LABS: HCG,QUALITATIVE URINE Negative
[2018-12-18] MEDS ORDERED: METHOCARBAMOL 500 MG TABLET PO ONE (21:26)
[2018-12-18 21:35] LABS: URINE APPEARANCE CLEAR; URINE BILIRUBIN NEGATIVE (<2.0 mg/dL); URINE COLOR YELLOW; URINE GLUCOSE (UA) NEGATIVE (NEGATIVE); URINE KETONE NEGATIVE (NEGATIVE); URINE LEUK ESTERASE NEGATIVE (NEGATIVE); URINE NITRITE NEGATIVE (NEGATIVE); URINE PROTEIN NEGATIVE (NEGATIVE); URINE UROBILINOGEN NEGATIVE mg/dL (0.2-1.0)
[2018-12-18] MEDS ORDERED: KETOROLAC TROMETHAMINE 30 MG/1 ML VIAL ONE (21:48)
[2018-12-18] MEDS ORDERED: METHOCARBAMOL 500 MG TABLET ONE (21:48)
== END 2018-12-18 22:55 | disposition home or self-care (01) ==
LOC: JER 20:01
DX: M54.5 Low back pain (principal); X50.1XXA Overexertion from prolonged static or awkward postures, initial encounter; Y93.89 Activity, other specified; Y92.013 Bedroom of single-family (private) house as the place of occurrence of the external cause; Y99.8 Other external cause status
CPT/HCPCS: 81003; 84703; 87086; 99281-25

== ENCOUNTER 2022-10-20 09:41 | Emergency (ER) | payer OTHER ==
[2022-10-20 09:47] VITALS: BP 112/70; PULSE 88; RESP 20; TEMP 97.8; BMI 20.9
== END 2022-10-20 11:38 | disposition home or self-care (01) ==
LOC: JERFT 09:41
DX: N63.21 Unspecified lump in the left breast, upper outer quadrant (principal)
CPT/HCPCS: 99281-25

== ENCOUNTER 2023-03-22 08:48 | Emergency (ER) | payer OTHER ==
[2023-03-22 08:54] VITALS: RESP 18; BMI 26.5
[2023-03-22] MEDS ORDERED: SODIUM CHLORIDE 0.9% 500 ML INFUS.BAG IV ONE (09:14)
[2023-03-22] MEDS ORDERED: ONDANSETRON 4 MG/2 ML VIAL IVPUSH ONE (09:15)
[2023-03-22] MEDS ORDERED: MAG HYDROX/AL HYDROX/SIMETH 30 ML UNIT-DOSE CUP PO ONE (09:15)
[2023-03-22] MEDS ORDERED: ACETAMINOPHEN 500 MG TABLET (FP) PO ONE (09:15)
[2023-03-22] MEDS ORDERED: FAMOTIDINE 20 MG TABLET PO ONE (09:15)
[2023-03-22] MEDS ORDERED: FAMOTIDINE 20 MG TABLET ONE (09:23)
[2023-03-22] MEDS ORDERED: ACETAMINOPHEN 325 MG TABLET (FP) ONE (09:23)
[2023-03-22] MEDS ORDERED: MAG HYDROX/AL HYDROX/SIMETH 30 ML UNIT-DOSE CUP ONE (09:24)
[2023-03-22] MEDS ORDERED: ONDANSETRON 4 MG/2 ML VIAL ONE (09:24)
[2023-03-22 09:50] LABS: BASO % 0.7 % (0-2.0); EOS % 0.7 % (0-4.5); HEMATOCRIT 41.2 % (32.4-45.2); HEMOGLOBIN 13.6 GM/dL (10.7-15.3); LYMPH % 10.3 % (8-40); MCH 29.6 pg (25.7-33.7); MEAN CELL VOLUME 89.5 fl (80-96); MEAN PLT VOLUME 7.7 fl (7.5-11.1); MONO % 4.5 % (3.8-10.2); NEUT % 83.8 % (42.8-82.8); PLATELET COUNT 353 10^3/uL (134-434); RBC 4.61 M/mm3 (3.60-5.2); RDW 14.5 % (11.6-15.6); WHITE BLOOD COUNT 13.3 K/mm3 (4.0-10.0)
[2023-03-22 10:05] LABS: POTASSIUM 3.9 mmol/L (3.5-5.1)
[2023-03-22 10:09] LABS: ALBUMIN 3.1 g/dl (3.4-5.0); CALCIUM 8.6 mg/dL (8.5-10.1)
[2023-03-22 10:10] LABS: BLOOD UREA NITROGEN 7.4 mg/dL (7-18); MAGNESIUM 1.9 mg/dL (1.8-2.4)
[2023-03-22 10:11] LABS: CREATININE 0.6 mg/dL (0.55-1.3); PHOSPHOROUS 3.4 mg/dL (2.5-4.9)
[2023-03-22 10:12] LABS: TOT PROT 6.9 g/dl (6.4-8.2)
[2023-03-22 10:44] LABS: PH,URINE 5.5 (5.0-8.0); URINE APPEARANCE CLEAR; URINE BILIRUBIN NEGATIVE (NEGATIVE); URINE COLOR YELLOW; URINE GLUCOSE (UA) NEGATIVE (NEGATIVE); URINE KETONE NEGATIVE (NEGATIVE); URINE LEUK ESTERASE NEGATIVE (NEGATIVE); URINE NITRITE NEGATIVE (NEGATIVE); URINE PROTEIN NEGATIVE (NEGATIVE); URINE UROBILINOGEN 0.2 mg/dL (0.2-1.0)
[2023-03-22 11:08] LABS: BILIRUBIN,TOTAL 0.2 mg/dL (0.2-1)
[2023-03-22 12:53] VITALS: BP 118/59; PULSE 57; TEMP 98
== END 2023-03-22 13:07 | disposition home or self-care (01) ==
LOC: JER 08:48
PROC: 3E033GC Introduction of Other Therapeutic Substance into Peripheral Vein, Percutaneous Approach (ICD-10-PCS; principal; 2023-03-22)
DX: O21.9 Vomiting of pregnancy, unspecified (principal); O26.892 Other specified pregnancy related conditions, second trimester; R10.10 Upper abdominal pain, unspecified; R19.7 Diarrhea, unspecified; Z3A.22 22 weeks gestation of pregnancy; Z20.822 Contact with and (suspected) exposure to COVID-19
CPT/HCPCS: 0241U-QW; 36415; 80053; 81003; 83690; 83735; 84100; 85025; 87086; 99284-25